=== PATIENT | female | born 1955 ===

== ENCOUNTER 2016-12-30 16:28 | Emergency (ER) | payer BC ==
[2016-12-30 16:32] VITALS: RESP 18
[2016-12-30] MEDS ORDERED: Sodium Chloride 0.9% 1,000 ML IV STA (16:48)
[2016-12-30 17:03] LABS: BASO % 0.7 % (0.0-2.0); EOS # 0.1 K/uL (0.0-0.7); EOS % 1.7 % (0.0-4.0); HEMATOCRIT 41.2 % (34.0-47.0); LYMPH # 2.2 K/uL (1.0-4.3); LYMPH % 38.7 % (20.0-40.0); MEAN CELL VOLUME 88.8 fl (81.0-99.0); MEAN CORPUSCULAR HEMOGLOBIN 29.4 pg (27.0-31.0); MEAN CORPUSCULAR HGB CONC 33.1 g/dL (33.0-37.0); MEAN PLATELET VOLUME 7.6 fl (7.2-11.7); MONO # 0.4 K/uL (0.0-0.8); MONO % 7.2 % (0.0-10.0); NEUT # 2.9 K/uL (1.8-7.0); NEUT % 51.7 % (50.0-75.0); NRBC % 0.1 % (0.0-0.0); RED CELL DISTRIBUTION WIDTH 13.5 % (11.5-14.5); WHITE BLOOD COUNT 5.6 K/uL (4.8-10.8)
[2016-12-30 17:12] LABS: ALB/GLOB RATIO 1.5 (1.0-2.1); ALCOHOL SERUM 33 mg/dl (0-10); ALKALINE PHOSPHATASE 55 U/L (38-126); ALT/SGPT 37 U/L (9-52); AST/SGOT 29 U/L (14-36); BILIRUBIN,TOTAL 0.4 mg/dl (0.2-1.3); BLOOD UREA NITROGEN 14 mg/dl (7-17); CALCIUM 9.4 mg/dL (8.4-10.2); CARBON DIOXIDE 23 mmol/L (22-30); CHLORIDE 100 mmol/L (98-107); GFR AFRICAN-AMERICAN > 60; GLUCOSE,RANDOM 109 mg/dL (65-105); POTASSIUM 3.4 MMOL/L (3.6-5.0); SODIUM 142 mmol/l (132-148); TOTAL PROTEIN 7.6 G/DL (6.3-8.2)
--- NOTE | 2016-12-30 17:18 | ED PDOC ---
Syncope/Near Syncope/Dizziness Time Seen by Provider: 12/30/16 16:34 Chief Complaint (Nursing): Syncope Chief Complaint (Provider): Syncope History Per: Patient History/Exam Limitations: no limitations Onset/Duration Of Symptoms: Hrs Current Symptoms Are (Timing): Still Present Additional Complaint(s): Riana Menendez is a 61 year old female with a history of hypertension and Natalia's disease that presents to the ED with a chief complaint of a syncope that occurred shortly prior to arrival in ED. Patient states that she was having [employer] with her family earlier today, and after finishing [employer] and waiting for a family member to get their car she became dizzy, nauseous, and needed to have a sudden bowel movement. Patient reports soft stool upon going to the bathroom, and denies noticing any blood or black stool. Patient states that she then took a Xanax and Losartan, as she thought her blood pressure was high, but that several minutes later her dizziness worsened and she had a syncopal episode. She denies hitting her head, falling, incontinence, tongue bite, recent illness, fever, chest pain, or shortness of breath. Once in ambulance, patient reports one episode of vomiting, after which she states she felt better. Of Note: She reports having similar episodes prior, the last of which occurred a few years ago. Patient states that she took her Deltiazem at noon today, which she normally takes at 7:00 AM. Patient additionally admits to drinking one glass of sangria at [employer] today. PMD: In [place], [place]. Patient states she had a stress test two months aog, results were normal. Past Medical History Reviewed: Historical Data, Nursing Documentation, Vital Signs Vital Signs: Last Vital Signs Temp 97.6 F 12/30/16 16:29 Pulse 75 12/30/16 16:51 Resp 18 12/30/16 16:51 BP 124/77 12/30/16 16:51 Pulse Ox 99 12/30/16 16:51 - Medical History PMH: HTN Other PMH: Hasimoto's disease - Surgical History Other surgeries: Breast reduction, cosmetic procedure - Family History Family History: States: Unknown Family Hx - Social History Current smoker - smoking cessation education provided: No Alcohol: Social - Home Medications Home Medications: Ambulatory Orders Medication Instructions Recorded Ondansetron [Zofran] 4 mg PO Q6H PRN #10 tab 12/30/16 - Allergies Allergies/Adverse Reactions: Allergies Allergy/AdvReac Type Severity Reaction Status Date / Time No Known Allergies Allergy Verified 12/30/16 16:29 Review of Systems Constitutional: Negative for: Fever Eyes: Negative for: Other (Negative focal weakness) Cardiovascular: Negative for: Chest Pain Respiratory: Negative for: Shortness of Breath Gastrointestinal: Positive for: Nausea, Vomiting, Diarrhea. Negative for: Other (Denies blood or black stool) Genitourinary Female: Negative for: Incontinence Neurological: Positive for: Dizziness. Negative for: Headache Physical Exam - Reviewed Nursing Documentation Reviewed: Yes Vital Signs Reviewed: Yes - Physical Exam Appears: Positive for: Non-toxic, No Acute Distress Head Exam: Positive for: ATRAUMATIC, NORMOCEPHALIC Skin: Positive for: Normal Color (Normal tone, symmetric), Warm. Negative for: Pallor Eye Exam: Positive for: Normal appearance, EOMI, PERRL Cardiovascular/Chest: Positive for: Regular Rate, Rhythm. Negative for: Tachycardia Respiratory: Positive for: Normal Breath Sounds. Negative for: Wheezing Gastrointestinal/Abdominal: Positive for: Normal Exam, Soft. 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 Negative for: Motor/Sensory Deficits - Laboratory Results Result Diagrams: 12/30/16 16:58 12/30/16 16:58 - ECG O2 Sat by Pulse Oximetry: 99 (RA) Pulse Ox Interpretation: Normal Medical Decision Making Medical Decision Making: Impression: Syncope Plan: * EKG * Alcohol * CMP * Troponin I * Urine Drug Screen * NaCl 1000 mLs at 1000 mLs/hr * Reevaluation EKG shows NSR at 74 bpm, with no ST changes and normal intervals. labs reviewed, reveal mild hypokalemia, K+ replaced orally Trop neg Hgb normal etoh 33 IVF bolus and zofran given, improved symptoms. Continued to deny chest pain, SOB and dizziness resolved. Remained NSR without ectopy on monitor. BP 126/77. 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 Rx zofran prn nausea. Scribe Attestation: Documented by Jaleesa Colon, acting as a scribe for Bob Prasad DO. Provider Scribe Attestation: All medical record entries made by the Scribe were at my direction and personally dictated by me. I have reviewed the chart and agree that the record accurately reflects my personal performance of the history, physical exam, medical decision making, and the department course for this patient. I have also personally directed, reviewed, and agree with the discharge instructions and disposition. Disposition - Clinical Impression Clinical Impression: Syncope, Nausea & vomiting - Patient ED Disposition Is Patient to be Admitted: No Counseled Patient/Family Regarding: Studies Performed, Diagnosis, Need For Followup, Rx Given - Disposition Referrals: Manas Oconnell MD [Staff Provider] - Disposition: Routine/Home Disposition Time: 19:02 Condition: STABLE Additional Instructions: Followup with your doctor as directed. Return to ER for any new or worsening symptoms. Prescriptions: Ondansetron [Zofran] 4 mg PO Q6H PRN #10 tab PRN Reason: Nausea/Vomiting Instructions: Syncope (ED) Forms: [employer] (Faroese) Print Language: JAPANESE
[2016-12-30] MEDS ORDERED: Potassium Chloride 20 mEq ER Tab PO ONE ×2 (17:46→18:46)
[2016-12-30 18:52] VITALS: PULSE 78
[2016-12-30 19:06] VITALS: BP 126/78; TEMP 96.7; O2SAT 98
--- NOTE | 2017-01-01 09:43 | CARD ---
APPROVED REPORT EKG Measurement Heart [id number] <Conclusion> Normal sinus rhythm Normal ECG
== END 2016-12-30 19:06 | disposition home or self-care (01) ==
LOC: H.ER 16:28
DX: R55 Syncope and collapse (principal); I10 Essential (primary) hypertension; E06.3 Autoimmune thyroiditis
CPT/HCPCS: 80053; 82948; 84484; 85025; 93005; 96374; 99285; G0328; G0480; J2405; J7040